=== PATIENT | male | born 1980 | race African-American/Black ===

== ENCOUNTER 2019-02-18 17:50 | Emergency (ER) | payer MEDICAID, OTHER ==
[~2019-02-18] VITALS: Ht 182.9 cm; Wt 75.0 kg
[2019-02-18] MEDS ORDERED: KETOROLAC 30MG/ML VIAL IM ONE (19:45)
[2019-02-18 21:29] VITALS: BP 122/79
== END 2019-02-18 21:29 | disposition home or self-care (01) ==
LOC: ER 18:06
DX: M25.562 Pain in left knee (principal); M25.521 Pain in right elbow; R03.0 Elevated blood-pressure reading, without diagnosis of hypertension; V19.40XA Pedal cycle driver injured in collision with unspecified motor vehicles in traffic accident, initial encounter; Y93.55 Activity, bike riding; Y92.410 Unspecified street and highway as the place of occurrence of the external cause
CPT/HCPCS: 73080; 73590; 96372; 99283; J1885